=== PATIENT | female | born 1995 | race Caucasian/White ===

== ENCOUNTER → 2019-03-04 14:42 | Outpatient (BNVA) | payer OTHER, SELFPAY | PROVIDERS: Family Provider Nurse Practitioner; PCP Nurse Practitioner; Visit Provider Obstetrics & Gynecology | DX: Z01.89 Encounter for other specified special examinations (principal) | CPT/HCPCS: 84315 ==

== ENCOUNTER → 2019-03-18 15:42 | Outpatient (BNVA) | payer OTHER, SELFPAY | PROVIDERS: Family Provider Nurse Practitioner; PCP Nurse Practitioner; Visit Provider Obstetrics & Gynecology | DX: Z01.89 Encounter for other specified special examinations (principal) | CPT/HCPCS: 84315 ==

== ENCOUNTER → 2019-04-01 15:50 | Outpatient (BNVA) | payer OTHER, MEDICAID, SELFPAY | PROVIDERS: Family Provider Nurse Practitioner; PCP Nurse Practitioner; Visit Provider Obstetrics & Gynecology | DX: O99.013 Anemia complicating pregnancy, third trimester (principal); Z3A.00 Weeks of gestation of pregnancy not specified | CPT/HCPCS: 84315; 85027 ==

== ENCOUNTER → 2019-04-14 15:38 | Outpatient (BNVA) | payer OTHER, SELFPAY | PROVIDERS: Family Provider Nurse Practitioner; PCP Nurse Practitioner; Visit Provider Obstetrics & Gynecology | DX: Z01.89 Encounter for other specified special examinations (principal) | CPT/HCPCS: 84315 ==

== ENCOUNTER → 2019-04-28 14:34 | Outpatient (BNVA) | payer OTHER, MEDICAID, SELFPAY | PROVIDERS: Family Provider Nurse Practitioner; PCP Nurse Practitioner; Visit Provider Obstetrics & Gynecology | DX: O99.013 Anemia complicating pregnancy, third trimester (principal) | CPT/HCPCS: 84315; 87081 ==

== ENCOUNTER 2019-05-05 12:21 | Outpatient (CLI) | payer OTHER, MEDICAID, SELFPAY ==
[2019-05-05] VITALS (8 sets, daily range): BP systolic 103–118; BP diastolic 63–78; PULSE 92–112; RESP 18; TEMP 36.9; BMI 32.4
[2019-05-05 13:43] LABS: Basophils % 0.2 %; Eosinophils # 0.1 10^3/uL (0.0-0.8); Eosinophils % 0.9 %; Hematocrit 38.4 % (37.0-47.0); Hemoglobin 12.5 g/dL (11.5-15.3); Lymphocytes # 1.4 10^3/uL (0.8-4.8); Lymphocytes % 15.7 %; Mean Corpuscular HGB Conc 32.6 g/dL (30.0-36.0); Mean Corpuscular Hemoglobin 27.4 pg (28.0-34.0); Mean Platelet Volume 11.1 fL (7.4-10.4); Monocytes # 0.6 10^3/uL (0.2-0.9); Monocytes % 7.1 %; Neutrophils # 6.5 10^3/uL (1.8-7.7); Neutrophils % 75.5 %; Nucleated Red Blood Cells % 0 %; Platelet Count 238 10^3/cmm (130-400); Red Blood Count 4.57 10^6/uL (4.1-5.3); Red Cell Distribution Width 14.5 % (12.1-15.1); White Blood Count 8.6 10^3/uL (4.0-10.0)
[2019-05-05 14:00] LABS: Add Urine Microscopic? YES; Bilirubin Urine Neg (NEGATIVE); Blood Urine Neg (Negative); Glucose Urine UA Norm (Normal); Ketones Urine Negative (Negative); Leukocyte Esterase Urine 2+ (Negative); Nitrate Urine Negative (Negative); Protein Urine Neg (Negative); Specific Gravity, Urine 1.015 (1.005-1.030); Urine Appearance Clear (CLEAR); Urine Color Yellow (Yellow); Urobilinogen Urine Norm (Negative); pH Urine 6 (5-7)
[2019-05-05 14:02] LABS: Bacteria Urine 1+
[2019-05-05 14:03] LABS: Add Urine Culture? No
[2019-05-05 14:07] LABS: Alanine Aminotransferase 9 U/L (0-33); Albumin Level 3.2 g/dL (3.5-5.2); Alkaline Phosphatase 110 IU/L (35-105); Anion Gap 16.5 (5-19); Aspartate Amino Transferase 17 U/L (0-32); Blood Urea Nitrogen 4 mg/dL (6-20); Calcium 9.3 mg/dL (8.5-10.5); Carbon Dioxide 21 mmol/L (22-29); Chloride 100 mmol/L (98-107); Globulin 2.8 g/dL (1.3-4.6); Glomerular Filtration Rate 192.9 mL/min (90-130); Glucose 113 mg/dL (65-115); Osmolality Calculated 274 mOsm/kg (285-295); Potassium 3.5 mmol/L (3.5-5.1); Sodium 134 mmol/L (136-145); Total Bilirubin 0.4 mg/dL (0.15-1.2); Uric Acid 2.9 mg/dL (2.4-5.7)
[2019-05-05 14:09] LABS: Urine Creatinine 75 mg/dL (28-217); Urine Protein Random 9 mg/dL
[2019-05-05 14:13] LABS: UPRO/UCREAT Ratio 0.12 mg/mg CR
== END 2019-05-05 14:39 | disposition home or self-care (01) ==
LOC: OPOB 12:54 → OBGYN 14:30 → OPOB 05-06 07:47
PROVIDERS: Family Provider Nurse Practitioner; PCP Nurse Practitioner; Visit Provider Obstetrics & Gynecology
DX: O16.9 Unspecified maternal hypertension, unspecified trimester (principal); Z3A.00 Weeks of gestation of pregnancy not specified
CPT/HCPCS: 36415; 59025; 80053; 81001; 82570; 84156; 84315; 84550; 85025; 99211

== ENCOUNTER → 2019-05-12 13:09 | Outpatient (BNVA) | payer OTHER, SELFPAY | PROVIDERS: Family Provider Nurse Practitioner; PCP Nurse Practitioner; Visit Provider Obstetrics & Gynecology | DX: Z46.89 Encounter for fitting and adjustment of other specified devices (principal) | CPT/HCPCS: 84315 ==

== ENCOUNTER → 2019-05-19 10:03 | Outpatient (BNVA) | payer OTHER, SELFPAY | PROVIDERS: Family Provider Nurse Practitioner; PCP Nurse Practitioner; Visit Provider Obstetrics & Gynecology | DX: Z01.89 Encounter for other specified special examinations (principal) | CPT/HCPCS: 84315 ==

== ENCOUNTER 2019-05-21 19:56 | Inpatient (IN) | payer OTHER, MEDICAID, SELFPAY ==
[2019-05-21] VITALS (15 sets, daily range): BP systolic 0–146; BP diastolic 0–86; PULSE 83–100; TEMP 36.5–36.7; BMI 31.9
[2019-05-21 20:22] LABS: Basophils % 0.3 %; Eosinophils # 0.1 10^3/uL (0.0-0.8); Eosinophils % 0.9 %; Lymphocytes # 1.9 10^3/uL (0.8-4.8); Lymphocytes % 16.9 %; Mean Corpuscular HGB Conc 33.3 g/dL (30.0-36.0); Mean Corpuscular Hemoglobin 28.1 pg (28.0-34.0); Mean Corpuscular Volume 84.4 fL (81-99); Mean Platelet Volume 11.2 fL (7.4-10.4); Monocytes # 0.8 10^3/uL (0.2-0.9); Monocytes % 6.9 %; Neutrophils # 8.2 10^3/uL (1.8-7.7); Neutrophils % 74.5 %; Nucleated Red Blood Cells % 0 %; Platelet Count 231 10^3/cmm (130-400); Red Blood Count 4.62 10^6/uL (4.1-5.3); Red Cell Distribution Width 14.4 % (12.1-15.1)
[2019-05-21 20:53] LABS: Urine Appearance Clear (CLEAR); Urine Color Yellow (Yellow); pH Urine 5 (5-7)
[2019-05-21 20:54] LABS: Bacteria Urine TRACE; Bilirubin Urine Neg (NEGATIVE); Blood Urine Neg (Negative); Glucose Urine UA Norm (Normal); Ketones Urine 2+ (Negative); Leukocyte Esterase Urine Negative (Negative); Mucus Urine 1+; Nitrate Urine Negative (Negative); Protein Urine Neg (Negative); RBC Urine RARE /hpf (0-2); Squamous Epithelial Cell Urine RARE (0-5); Urobilinogen Urine 1 mg/dL (Negative); WBC Urine RARE /hpf (0-5)
[2019-05-21 21:12] LABS: Urine Creatinine 196 mg/dL (28-217); Urine Protein Random 20 mg/dL
[2019-05-21] MEDS: oxytocin 30 UNIT/500 ML BAG IV (21:58)
[2019-05-22] VITALS (170 sets, daily range): BP systolic 0–173; BP diastolic 0–94; PULSE 61–156; RESP 18; TEMP 36.6–37.1; O2SAT 93–100
[2019-05-22] MEDS: dextrose 5%-lactated ringers 1,000 ML 125 ML IV (00:24)
[2019-05-22] MEDS: lactated ringers 1,000 ML 999 ML IV (02:46)
--- NOTE | 2019-05-22 03:55 | ANES.PREANE2 ---
Pre-Anesthetic Assessment Pre-Anesthetic Assessment: Height/Weight: Height 1.65 m Weight 87.09 kg Temp Pulse BP Pulse Ox 98.4 F 77 124/64 97 05/22/19 04:44 05/22/19 04:59 05/22/19 04:59 05/22/19 04:58 Preop Diagnosis: IUP Proposed Procedure: labor epidural Was Beta Johny taken within 24 hours: N/A Social: Social History: No alcohol and No tobacco Exam: Pre-Anes Outpt Exam: alert, oriented x 3, clear to auscultation bilaterally and regular rate & rhythm Airway: Submandibular: WNL Cervical ROM: WNL MP: 1 History/ROS: No significant history except as noted Pulmonary: Pulmonary: None reported CV/HEM: CV/HEM: None reported : : None reported Hepatic: Hepatic: None reported GI: GI: None reported Metabolic: Metabolic: None reported Musc/skel: Musc/skel: None reported Neuropsych: Neuropsych: None reported Anesthetic Plan: ASA status: 1 Anesthesia: Anesthesia Evaluation Risk of > 500 ml blood loss (7ml/kg in children): No Meds/Allergies Current Medications: Current Medications Generic Name Dose Route Start Last Admin Trade Name Freq PRN Reason Stop Dose Admin Dextrose/Lactated Ringer's 1,000 mls @ 125 m ls/hr 05/21/19 19:45 05/22/19 00:24 Dextrose 5%-Lact ated Ringers IV 125 mls/hr .Q8H PADDY Administration Oxytocin 30 unit in 500 ml s @ 1 mls/hr 05/21/19 21:30 05/22/19 01:00 Pitocin IV 5 milliunit/min .Q24H PADDY 5 mls/hr Titration Protocol 1 MILLIUNIT/MIN PFSH Anesthesia PFSH: Social History Smoking and tobacco status: never smoked Alcohol intake: never Additional social history: - Tobacco use: Denies Alcohol use: Denies Drug use: Denies 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 [employer] Female Reproductive History: : 2 Data Anesthesia CBC & Chem 7: 05/21/19 19:35 Other Labs: Laboratory Results - last 48 hr 05/21/19 05/21/19 05/21/19 19:35 20:35 20:35 WBC 11.0 H RBC 4.62 Hgb 13.0 Hct 39.0 MCV 84.4 MCH 28.1 MCHC 33.3 RDW 14.4 Plt Count 231 MPV 11.2 H Neut % (Auto) 74.5 Lymph % (Auto) 16.9 [place] % (Auto) 6.9 Eos % (Auto) 0.9 Baso % (Auto) 0.3 Neut # (Auto) 8.2 H Lymph # (Auto) 1.9 [place] # (Auto) 0.8 Eos # (Auto) 0.1 Baso # (Auto) 0.0 Nucleated RBC % (auto) 0 Nucleated RBCs # 0.0 Urine Color Yellow Urine Appearance Clear Urine pH 5 Ur Specific [place] 1.030 Urine Protein Neg Urine Glucose (UA) Norm Urine Ketones 2+ H Urine Blood Neg Urine Nitrate Negative Urine Bilirubin Neg Urine Urobilinogen 1 H Ur Leukocyte Esterase Negative Urine RBC Rare Urine WBC Rare Ur Squamous Epith Cells Rare Urine Bacteria Trace Urine Mucus 1+ U Random Total Protein 20 Urine Creatinine 196 Protein/Creatinin Ratio 0.10 Cardiac Studies: No Data to Display
--- NOTE | 2019-05-22 05:03 | ANES.PROC ---
Anesthesia Procedures Procedure/Date: 05/22/19 Epidural: Time Out Performed: Yes Consents Signed: Procedure Consent Consent: requested by attending/covering physician Lumbar Level: L4-L5 Epidural position: sitting Epidural procedure: sterile prep of area, 1% lidocaine to numb the area, 18 g needle, negative for paresthesia passed, neg for paresthesia, test dose given, 1.5% xylocaine 1:200k epi (5ml), placed PCEA, no systemic response, sterile dressing applied, L.U.D. no apparent complications and 0.2% Ropiavacaine @ mls/hr (13) Additional Comments: 1st attempt at L4-5 blood returned in catheter, flushed with saline and aspirated again with blood return. Catheter withdrawn, skin re-prepped. Successful attempt 2 was made at L3-4 with no complications.
[2019-05-22] MEDS: oxytocin 30 UNIT/500 ML BAG 8 UNIT IV (05:45)
--- NOTE | 2019-05-22 06:33 | PC.NURSE ---
AT 0545 HIGH DOSE PITOCIN WAS STARTED FROM EXISTING BAG OF FLUIDS. THIS BROUGHT THE AMOUNT FROM 6 MILLIUNITS TO 8 MILLIUNITS.
[2019-05-22] MEDS: ondansetron 2 mg/ML SDV 2 mL 4 MG IVP ×2 (14:20→17:02)
[2019-05-22] MEDS: metoclopramide 5 mg/mL SDV 2 mL 10 MG IV (18:52)
--- NOTE | 2019-05-22 20:19 | PM.DELIVERY ---
 Delivery Note: Date of delivery: May 22, 2019 Pre-delivery diagnoses: 24-year-old 2 para 0-0-1-0 at 39 weeks and 4 days gestation GBS negative Anemia on iron Elective induction of labor Post-delivery diagnoses: Vaginal delivery on 05/22/2019 Procedure: Vaginal delivery Op report anesthesia: Epidural and Local Delivering Physician: Dr. Diego Chen Pre-Delivery Course: Ms. Fuentes is a 24-year-old 2 para 0-0-1-0 at 39 weeks and 4 days gestation who presented to labor and delivery on 05/21/2019 for scheduled induction of labor-elective. She was GBS negative and on examination was noted to be 3 cm, 70% and -3 station with a category 1 tracing and contractions every 1 to 5 minutes that she rated as 4 out of 10 in intensity. She had 1 elevated blood pressure and protein creatinine ratio performed was within normal limits and ruled out preeclampsia and all other blood pressures were largely within normal limits. -Induction was started at 10 PM with Pitocin titrated to a maximum of 20 mIU. This was continued for 12 hours. She grew uncomfortable during this time and although she made very minimal cervical change and epidural was placed for her relief. tracing remained category 1. After 12 hours of Pitocin it was turned off patient was allowed to have a clear liquid diet and Pitocin restarted after 3 hours. Pitocin was titrated to a maximum of 14 mIU and she started to make cervical change and at 2:30 PM on 05/22/2019 was 5 cm, 80% and -2 station. Artificial rupture of membranes was performed at 3:30 PM with clear fluid at which point she was 6 cm, 100% and -2 station. She made rapid cervical change and was fully dilated at 530 and was allowed to labor down until 6:30 PM at which point the head was +2 station. She was set up in lithotomy ready to push Delivery: She was set up in lithotomy position and was pushing effectively. She was noted to be +3 station and continued pushing well. A right mediolateral episiotomy was cut after infiltrating the area with 2% lidocaine. The head delivered in TINA position, no nuchal cord was present. The shoulders and rest of the body followed with her next push. The baby's mouth and nose were suctioned and the baby was placed on the mother's belly. Once cord pulsations stopped the cord was cut by father of the baby. Placenta delivered spontaneously intact with membranes and was discarded. The fundus was noted to be firm and well contracted. The vagina and cervix were inspected and no cervical or sulcal lacerations were noted. The perineum was noted to be intact except for the right mediolateral episiotomy which was repaired with 3-0 Vicryl in a continuous interlocking fashion and good hemostasis and reapproximation was obtained. Baby girl, [place] born at 7:41 PM on 05/22/2019 with 8/9, weighing 8 pounds 5 ounces, 3675 g, 20-3/4 inches long. Placenta was delivered spontaneously intact with membranes at 7:45 PM. Cotyledons were intact , centrally inserted umbilical cord with 3 vessels noted. Estimated blood loss 350 mL. Complications-none, both baby and mother were left to recovery in a stable condition Post-Delivery Status: Stable A&P Assessment and plan (1) Encounter for supervision of normal , unspecified, third trimester: Status: Acute Qualifiers: Normal : normal first Qualified Code(s): Z34.03 - Encounter for supervision of normal first , third trimester (2) Anemia affecting : Status: Acute Qualifiers: Trimester: third trimester Qualified Code(s): O99.013 - Anemia complicating , third trimester Coding Level of Care Code Acute Ergonomic Specialist for Chg Fwd Diagnoses Encounter for supervision of normal , unspecified, third trimester Z34.03 Normal : normal first Anemia affecting O99.013 Trimester: third trimester
[2019-05-22] MEDS: lanolin oint 7 gm 1 APPLIC TOPICAL (22:00)
[2019-05-22] MEDS: benzocaine-menthol 78 gm Canister 1 SPRAY TOPICAL (22:00)
[2019-05-23] VITALS (7 sets, daily range): BP systolic 98–125; BP diastolic 58–79; PULSE 91–116; RESP 16–18; TEMP 36.4–36.8; O2SAT 99
[2019-05-23] MEDS: HYDROcodone-acetaminophen 5-325 mg Tablet PO (03:51)
[2019-05-23] MEDS: famotidine 20 mg Tablet PO (07:41)
[2019-05-23] MEDS: docusate sodium 100 mg Capsule PO ×2 (08:48→22:02)
[2019-05-23] MEDS: prenatal vitamin Capsule 1 CAP PO (08:48)
[2019-05-23 09:21] LABS: Hematocrit 34.5 % (37.0-47.0); Hemoglobin 11.4 g/dL (11.5-15.3); Mean Corpuscular Hemoglobin 27.6 pg (28.0-34.0); Mean Corpuscular Volume 83.5 fL (81-99); Mean Platelet Volume 10.9 fL (7.4-10.4); Platelet Count 215 10^3/cmm (130-400); Red Blood Count 4.13 10^6/uL (4.1-5.3); Red Cell Distribution Width 14.3 % (12.1-15.1); White Blood Count 13.9 10^3/uL (4.0-10.0)
--- NOTE | 2019-05-23 12:39 | PM.PN ---
Subjective Subjective: Interval history: 24-year-old white female 2, now para 1-0-1-1 who is status post vaginal delivery on 05/22/2019 at approximately 19:40. She denies any complaints. She reports tolerating a regular diet without nausea or vomiting. She denies lightheadedness or dizziness with ambulation. She denies shortness of breath or chest pains. She states that her pain is been well controlled. She denies problems with urination. She states that her bleeding has slowed. She reports that she is breast-feeding. Vitals/I&O/Wt Last Vital Signs Temp 97.6 F 05/23/19 08:58 Pulse 93 05/23/19 08:58 Resp 16 05/23/19 08:58 BP 111/75 05/23/19 08:58 Pulse Ox 99 05/23/19 08:58 05/22/19 05/23/19 05/23/19 22:59 06:59 14:59 Intake Total 28 / 443.033 Output Total 200 / 600 1150 / 1750 Balance -172 / -156.967 -1150 / -1306.967 Weight last 48 hrs Weight 192 lb Physical Exam Const: COMMON NORMALS: no apparent distress, average body habitus, alert and well nourished GENERAL APPEARANCE: well developed ORIENTATION/CONSCIOUSNESS: Yes oriented to person, Yes oriented to place and Yes oriented to time Resp: COMMON NORMALS: normal respiratory effort and clear to auscultation bilaterally AUSCULTATION: clear to auscultation bilaterally Cardio: COMMON NORMALS: regular rate, regular rhythm, no gallops, no murmurs and no rub RATE: regular rate RHYTHM: regular rhythm GI: COMMON NORMALS: soft to palpation, non-tender, no hepatosplenomegaly and no masses (Except for nontender uterus, approx 2 FB below umbilicus) AUSCULTATION: Yes normoactive bowel sounds PALPATION: Yes soft, Yes no hepatosplenomegaly and No hernia : EXTERNAL FEMALE EXAM: No hernia Extremity: GENERAL: Yes edema (2+ lower extremity) OTHER: No calf pain bilaterally Neuro: SENSORIUM/ORIENTATION: Yes alert, Yes oriented to person, Yes oriented to place and Yes oriented to time Psych: COMMON NORMALS: affect normal MOOD & AFFECT: Yes euthymic mood Urinary Catheter Management^: Peña: Cath Placed During This Visit: yes Urinary Catheter Date of Insertion: 05/22/19 Urinary Catheter Time of Insertion: 05:15 Data : 05/23/19 09:07 A&P Assessment and plan (1) Term delivered: day 1, approximately 16 hours status post vaginal delivery. Patient doing well overall. Continue present management. Discontinue PIID. Plan is for discharge tomorrow. Status: Acute Attestations Medical Necessity Statement*: Patient is <16 hours post vaginal delivery. Coding Level of Care Code Acute Orthodontic Band Maker for Chg Fwd Diagnoses Term delivered O80
[2019-05-24 06:10] VITALS: BP 107/70; PULSE 85; RESP 16; TEMP 36.5; O2SAT 96
[2019-05-24] MEDS: prenatal vitamin Capsule 1 CAP PO (10:24)
[2019-05-24] MEDS: docusate sodium 100 mg Capsule PO (10:24)
[2019-05-24 10:34] VITALS: BP 124/81; PULSE 76; RESP 16; TEMP 36.7
--- NOTE | 2019-05-24 10:46 | PM.DCS ---
Discharge Providers Date of Admission: 05/21/19 19:56 Date of Discharge: May 24, 2019 Attending Provider at Admission: Diego Bellamy MD Attending Provider at Discharge: Diego Bellamy MD Primary Care Provider: FANTA Feliciano Diagnoses at Discharge Discharge Diagnosis (1) Term delivered: Status: Acute Reason for Visit Reason for Visit: Reason For Visit: induction Hospital Course Hospital Course: ADMISSION DIAGNOSIS: 24-year-old 2 para 0-0-1-0 at 39 weeks and 4 days gestation GBS negative Anemia on iron Elective induction of labor Ms. Fuentes is a 24-year-old 2 para 0-0-1-0 at 39 weeks and 4 days gestation who presented to labor and delivery on 05/21/2019 for scheduled induction of labor-elective. She was GBS negative and on examination was noted to be 3 cm, 70% and -3 station with a category 1 tracing and contractions every 1 to 5 minutes that she rated as 4 out of 10 in intensity. She had 1 elevated blood pressure and protein creatinine ratio performed was within normal limits and ruled out preeclampsia and all other blood pressures were largely within normal limits. -Induction was started at 10 PM with Pitocin titrated to a maximum of 20 mIU. This was continued for 12 hours. She grew uncomfortable during this time and although she made very minimal cervical change and epidural was placed for her relief. tracing remained category 1. After 12 hours of Pitocin it was turned off patient was allowed to have a clear liquid diet and Pitocin restarted after 3 hours. Pitocin was titrated to a maximum of 14 mIU and she started to make cervical change and at 2:30 PM on 05/22/2019 was 5 cm, 80% and -2 station. Artificial rupture of membranes was performed at 3:30 PM with clear fluid at which point she was 6 cm, 100% and -2 station. She made rapid cervical change and was fully dilated at 530 and was allowed to labor down until 6:30 PM at which point the head was +2 station. She was set up in lithotomy ready to push Discharge Summary: She underwent an uncomplicated vaginal delivery on 05/22/2019. She did well on day 0 and was ambulating well, tolerating regular diet, voiding freely, passing flatus. She was breast-feeding without difficulty and bonding well with her daughter. Pain was well-controlled with by mouth pain medication. She denied nausea, vomiting, fever, chills, shortness of breath, leg pain. She had moderate vaginal bleeding. On day # 1 she continued to do well with stable vital signs and stable hemoglobin at 11.5. She was discharged home on day 2 in a stable condition. Warning signs for endometritis, mastitis, DVT/PE were reviewed with her. Post delivery activity restrictions were also reviewed with her at all her questions were answered to her satisfaction. Considering control pills Physical Exam Narrative: EXAM NARRATIVE: Gen.: No acute distress Heart: S1-S2 heard, regular rate and rhythm Lungs: Clear to auscultation bilaterally Abdomen: Soft, fundus firm below umbilicus Legs: No calf tenderness, 2+ bilateral pitting pedal edema. Urinary Catheter Management^: Peña: Cath Placed During This Visit: yes Urinary Catheter Date of Insertion: 05/22/19 Urinary Catheter Time of Insertion: 05:15 Discharge Data Vitals: Last Vital Signs Temp 98.1 F 05/24/19 10:34 Pulse 76 05/24/19 10:34 Resp 16 05/24/19 10:34 BP 124/81 05/24/19 10:34 Pulse Ox 96 05/24/19 06:10 Discharge Plan Discharge Patient Disposition: Home, Self-Care Condition: Stable Prescriptions: New ibuprofen 800 mg tablet 800 mg PO Q8H Qty: 30 RF: 0 docusate sodium 100 mg Capsule 100 mg PO BID PRN (Reason: constipation) Qty: 30 RF: 0 Continued prenat.vits,rohan,[id number] Tablet 1 tab PO DAILY RF: 0 Discontinued ferrous sulfate 325 mg (65 mg iron) tablet 325 mg PO BID RF: 0 Discharge Orders: Discharge Order (Routine); Ordered 05/24/19 Ordered By: Diego Bellamy Referrals: Diego Bellamy MD [Physician] - (6 wk pp) Discharge Diet: Usual diet Activity Restrictions/Additional Instructions: Pelvic rest for 6 weeks No heavy lifting for 6 weeks Emergency room precautions reviewed Discharge Attestations Time Spent in Discharge Care*: greater than 30 min Quality Metrics Clinical Quality Measures During this hospital stay, did patient experience: None Coding Level of Care Code Acute Extruder Operator Horizontal for Chg Fwd Diagnoses Term delivered O80
[2019-05-24 13:40] VITALS: BP 118/78; PULSE 85; RESP 18; TEMP 37.1; O2SAT 96
== END 2019-05-24 13:55 | disposition home or self-care (01) | DRG 807 ==
LOC: OPOB 19:56
PROVIDERS: Admitting Provider Obstetrics & Gynecology; Family Provider Nurse Practitioner; PCP Nurse Practitioner; Visit Provider Obstetrics & Gynecology
DX: O99.02 Anemia complicating childbirth (principal); Z37.0 Single live birth; D64.9 Anemia, unspecified; Z3A.39 39 weeks gestation of pregnancy; O70.0 First degree perineal laceration during delivery
CPT/HCPCS: 12345; 36415; 51702; 59409; 81001; 82570; 84156; 85025; 85027; 96375; J2405; J2765; J2795

== ENCOUNTER → 2020-01-20 14:45 | Outpatient (BNVA) | payer OTHER, SELFPAY | PROVIDERS: Family Provider Nurse Practitioner; PCP Nurse Practitioner; Visit Provider Podiatrist Foot & Ankle Surgery | DX: B35.1 Tinea unguium (principal) | CPT/HCPCS: 87210 ==

== ENCOUNTER 2021-07-13 19:37 | Emergency (ER) | payer OTHER, SELFPAY ==
[2021-07-13 19:40] VITALS: BP 125/89; PULSE 90; RESP 16; TEMP 36.9; O2SAT 100; BMI 26.6
--- NOTE | 2021-07-13 19:41 | ED_ITS ---
HPI - Animal Bite General: Chief Complaint: Animal Bite Stated Complaint: SNAKE BITE Time Seen by Provider: 07/13/21 19:40 History of Present Illness: Ms Fuentes is a 26-year-old lady without significant medical history who is currently up-to-date on Tdap presenting to the emergency department due to concern for snakebite. She was walking with her and pushing a stroller when she saw a snake strike out and hit her left leg. She reports mild initial nauseous feeling associated with initial panic. She has not had pain or other symptoms since incident. Otherwise has been at her baseline health. No other specific changes in health, exacerbating, or alleviating factors identified. Onset (ago): minute(s) Animal: snake Review of Systems General: Reports: 10 or more systems reviewed and unremarkable except in HPI and below PFSH ED PFSH: Medical History No pertinent past medical history Denies diabetes, asthma, hypertension, seizures, DVT/PE PMD: Dr. Cannon Surgical History H/O adenoidectomy Done in second grade-denies any complications with anesthesia History of dental surgery Family History Family/Other Breast cancer Maternal cousin, diagnosed in her 50s Grandfather CAD (coronary artery disease) maternal Diabetes maternal Hypertension paternal Grandmother Diabetes maternal Hypertension paternal Denies family history of Colon cancer Ovarian cancer Hyperlipidemia Uterine cancer Thyroid condition Stroke Social History Smoking and tobacco status: never smoked Physical Exam Const: COMMON NORMALS: alert GENERAL APPEARANCE: cooperative and well developed HENMT: COMMON NORMALS: normocephalic and atraumatic HEAD & SCALP: normocephalic and atraumatic Eye: COMMON NORMALS: conjunctivae normal CONJUNCTIVA: Yes conjunctivae normal SCLERA: sclerae normal Neck/C-Spine: COMMON NORMALS: supple GENERAL: Yes trachea midline Resp: COMMON NORMALS: normal respiratory effort EFFORT & INSPECTION: Yes able to speak in complete sentences Cardio: COMMON NORMALS: regular rate and regular rhythm RATE: regular rate RHYTHM: regular rhythm GI: COMMON NORMALS: Soft to palpation PALPATION: Yes Soft to palpation and No Tenderness to palpation present (GI) PERCUSSION: normal to percussion Extremity: NARRATIVE EXTREMITY EXAM: LLE - anterior butcher with few abrasions. No evidence of punctures. No edema or discoloration. Distal CMS normal. GENERAL: Yes normal exam except as noted and No edema Neuro: COMMON NORMALS: moves all extremities SENSORIUM/ORIENTATION: Yes alert and No Orientation impaired Psych: COMMON NORMALS: mental status grossly normal and Normal thought process present THOUGHT PROCESS: Normal thought process present Course Vital Signs: Vital signs: Vital Signs Temperature 98.5 F 07/13/21 19:40 Pulse Rate 90 07/13/21 20:34 Respiratory Rate 17 07/13/21 20:34 Blood Pressure 125/89 07/13/21 20:34 Pulse Oximetry 100 07/13/21 20:34 MDM - Animal Bite Medical Decision Making 26 yo lady presenting due to concern over snakebite. Up-to-date on Tdap. Physical exam more consistent with mild abrasions/glancing injury. There is no puncture wound. Picture of snake consistent with northern water snake. Patient is asymptomatic. Satisfactory for outpatient management with strict return precautions. Medical Records I reviewed the patient's medical records. Lab Data I reviewed the patient's lab results. Discharge Plan Discharge Patient Disposition: Home Clinical Impression: Snake bite Condition: Stable Prescriptions: No Action 28-800 mg-mcg Tablet 1 tab PO DAILY 0RF Discharge Orders: Discharge ED (Routine); Ordered 07/13/21 Ordered By: Dustin Wheat Referrals: Nikole Palma, ELECTRICAL SOFTWARE ENGINEER-C [Nurse Practitioner] - Discharge Diet: Usual diet Discharge Activity: Resume usual activity Patient Instructions: Snake Bite (ED) Activity Restrictions/Additional Instructions: Thank you for visiting the emergency department. You were seen and evaluated for concern for snakebite. Based on exam I do not believe that there are any puncture wounds and based on picture I have low suspicion for venomous snake. You may use topical triple acting antibiotic and perform local wound care. I do not expect any of the following but please return to the emergency department for pain, increased swelling or redness that spreads, any numbness or tingling, any signs of systemic illness, or anything else that you are concerned about and feel needs emergency department evaluation. Coding Level of Care Code ED Freight Claim Investigator for Juliane Lind
[2021-07-13 20:34] VITALS: BP 125/89; PULSE 90; RESP 17; O2SAT 100
== END 2021-07-13 20:36 | disposition home or self-care (01) ==
PROVIDERS: Emergency Provider Emergency Medicine; PCP Family Medicine
DX: S80.872A Other superficial bite, left lower leg, initial encounter (principal); W59.11XA Bitten by nonvenomous snake, initial encounter
CPT/HCPCS: 99282

== ENCOUNTER 2022-04-12 23:43 | Inpatient (IN) | payer OTHER, SELFPAY ==
[2022-04-12 22:40] VITALS: BMI 32.9
[2022-04-12 22:51] VITALS: RESP 15
[2022-04-12 22:53] VITALS: BP 120/76; PULSE 94; TEMP 36.1
[2022-04-12 23:47] VITALS: RESP 16
[2022-04-13] VITALS (53 sets, daily range): BP systolic 101–174; BP diastolic 61–97; PULSE 86–150; RESP 16–18; TEMP 36.7–37.3; O2SAT 85–100
[2022-04-13] MEDS: lactated ringers 1,000 ML 999 ML IV ×2 (00:11→01:15)
--- NOTE | 2022-04-13 00:16 | ANES.PREANE2 ---
Pre-Anesthetic Assessment Height/Weight: Height 1.65 m Temp Pulse BP 97.0 F L 94 120/76 04/12/22 22:53 04/12/22 22:53 04/12/22 22:53 Preop Diagnosis: IUP Familial anesthetic complications: None Was Beta Johny taken within 24 hours: N/A Was Clonidine taken within 24 hours: N/A Social No alcohol and No tobacco Exam alert, oriented x 3, clear to auscultation bilaterally and regular rate & rhythm Airway Submandibular: within normal limits Cervical ROM: within normal limits Mallampati: Class III Dentition: full History/ROS No significant history except as noted and No significant complaints Pulmonary Cough CV/HEM None reported None reported Hepatic None reported GI Gastroesophageal Reflux Disease Metabolic None reported Musc/skel None reported Neuropsych None reported Anesthetic Plan ASA status: 2 Anesthesia: Anesthesia Evaluation and Regional (specify below) (Epidural) Risk of > 500 ml blood loss (7ml/kg in children): No Medications/Allergies Home Medications Medication Instructions Recorded Confirmed Last Taken Type vit no.133-ferrous 1 tab PO DAILY 07/13/21 07/13/21 07/13/21 History fumarate 28 mg-folic acid 800 mcg tablet () Allergies Allergy/AdvReac Type Severity Reaction Status Date / Time Penicillins AdvReac oral Verified 02/14/21 15:09 thrush/yeast---Has never taken Keflex Current Medications Generic Name Dose Route Start Last Admin Trade Name Freq PRN Reason Stop Dose Admin Lactated Ringer's 1,000 mls @ 999 mls/hr 04/12/22 23:47 04/13/22 00:11 Lactated Ringers IV 999 mls/hr .Q1H1M PRN Administration See label comments PFSH Anesthesia Medical History No pertinent past medical history Denies diabetes, asthma, hypertension, seizures, DVT/PE PMD: Dr. Cannon Surgical History H/O adenoidectomy Done in second grade-denies any complications with anesthesia History of dental surgery Family History Family/Other Breast cancer Maternal cousin, diagnosed in her 50s Grandfather CAD (coronary artery disease) maternal Diabetes maternal Hypertension paternal Grandmother Diabetes maternal Hypertension paternal Denies family history of Colon cancer Ovarian cancer Hyperlipidemia Uterine cancer Thyroid condition Stroke Social History Smoking and tobacco status: never smoked Data Anesthesia Cardiac Studies: No Data to Display
[2022-04-13 00:32] LABS: Basophils % 0.4 %; Eosinophils # 0.1 10^3/uL (0.0-0.8); Eosinophils % 1.2 %; Hematocrit 33.2 % (37.0-47.0); Hemoglobin 10.4 g/dL (11.5-15.3); Lymphocytes # 2.1 10^3/uL (0.8-4.8); Lymphocytes % 18.1 %; Mean Corpuscular HGB Conc 31.3 g/dL (30.0-36.0); Mean Corpuscular Hemoglobin 23.9 pg (28.0-34.0); Mean Corpuscular Volume 76.1 fl (81-99); Mean Platelet Volume 13.2 fL (7.4-10.4); Monocytes # 0.9 10^3/uL (0.2-0.9); Monocytes % 7.4 %; Neutrophils # 8.28 10^3/uL (1.8-7.7); Neutrophils % 72.6 %; Nucleated Red Blood Cells % 0 %; Platelet Count 93 10^3/cmm (130-400); Red Blood Count 4.36 10^6/uL (4.1-5.3); Red Cell Distribution Width 14.1 % (12.1-15.1); White Blood Count 11.4 10^3/uL (4.0-10.0)
[2022-04-13 01:15] LABS: Slide Review Slide Review Perform
[2022-04-13 01:29] LABS: Basophils % 0.3 %; Eosinophils # 0.1 10^3/uL (0.0-0.8); Hematocrit 31.5 % (37.0-47.0); Hemoglobin 9.8 g/dL (11.5-15.3); Lymphocytes # 2.5 10^3/uL (0.8-4.8); Lymphocytes % 20.9 %; Mean Corpuscular HGB Conc 31.1 g/dL (30.0-36.0); Mean Corpuscular Hemoglobin 23.8 pg (28.0-34.0); Mean Corpuscular Volume 76.5 fl (81-99); Mean Platelet Volume 12.1 fL (7.4-10.4); Monocytes # 0.9 10^3/uL (0.2-0.9); Monocytes % 7.7 %; Neutrophils # 8.25 10^3/uL (1.8-7.7); Neutrophils % 69.8 %; Nucleated Red Blood Cells % 0 %; Platelet Count 84 10^3/cmm (130-400); Red Blood Count 4.12 10^6/uL (4.1-5.3); Red Cell Distribution Width 14.2 % (12.1-15.1); White Blood Count 11.8 10^3/uL (4.0-10.0)
--- NOTE | 2022-04-13 02:19 | ANES.PROC ---
Anesthesia Procedures Procedure/Date: 04/13/22 Epidural: Time Out Performed: Yes Consents Signed: Procedure Consent and NPO Consent Consent: requested by attending/covering physician, from patient, risks and benefits reviewed and patient agrees to proceed Lumbar Level: L2-L3 Epidural position: sitting Epidural procedure: sterile prep of area (betadine), 1% lidocaine to numb the area (3 mLs), neg for paresthesia, test dose given, 1.5% xylocaine 1:200k epi (3 mLs/ 2 mLs), 0.2% Ropivacaine bolus ml (5 mLs), placed PCEA, no systemic response, sterile dressing applied, L.U.D. no apparent complications and 0.2% Ropiavacaine @ mls/hr (13) Additional Comments: ROCK 7cm, catheter threaded to 12 cm. Attempt x 2. Called Dr. Cannon and Dr Nunez with platelet values and both were in agreement that we may proceed with epidural placemen. Patient educated on increased risk of bleeding and hematoma formation and agreeable to proceed with epidural placement.
[2022-04-13] MEDS: dextrose 5%-lactated ringers 1,000 ML 125 ML IV (02:22)
[2022-04-13] MEDS: oxytocin 30 UNIT/500 ML BAG 600 UNIT IV (03:32)
--- NOTE | 2022-04-13 04:58 | PM.OPHPUD ---
Labor & Delivery H&P Update Date of Procedure: April 13, 2022 Date H&P Performed: 04/11/22 Changes to previous documentation: The patient has made significant cervical change. Admission Diagnosis: Preop diagnosis: IUP Planned procedure: Spontaneous vaginal delivery Other information: The patient is a 27-year-old 3 para 1-0-1-1 at 39 weeks estimated gestational age presenting to the OB department in active labor. The patient had an unremarkable to this point. Her labs were also unremarkable. Her blood type is a positive. Her antibody screen was negative. She is rubella immune. She did fail her 1 hour glucose screen, but passed her 3-hour test. The remainder of her infectious disease profile is within normal limits.
--- NOTE | 2022-04-13 05:32 | P.PCNOB_ITS ---
Delivery Note: Date of delivery: April 13, 2022 Pre-delivery diagnoses: 27-year-old 2 para 1-0-0-1 at 39 weeks estimated gestational age presenting in active labor Post-delivery diagnoses: Status post vacuum-assisted vaginal delivery Procedure: Vacuum-assisted vaginal delivery Delivering Physician: Robert Cannon Estimated blood loss (mL): 150 Pre-Delivery Course: The patient presented to the hospital in active labor. An epidural was placed. An amniotomy was performed. After the amniotomy, the baby began having deep decelerations. She progressed to 8 cm and had a very stretchy cervix. Delivery: The baby began having deep decelerations despite appropriate interventions. At that time I noted that her cervix was 8 cm dilated and very stretchy. I had her push with contractions, and she was able to push past the cervix and was complete. Due to the continued deep decelerations, I elected to use a vacuum which I placed in the baby's head in the usual fashion. He has a vacuum for 10 seconds to help assist before delivery of the baby. She delivered a female with a weight of 7 pounds 12 ounces with Apgars of 8, 10. The baby was delivered from the TINA position and placed on the mother's abdomen. The cord was then clamped and cut 1 minute after delivery. There was a nuchal cord x2 that I did deliver through before reducing. There was no meconium. The [facility]a and 3 vessel cord were delivered intact shortly thereafter. The perineum and vaginal vault were carefully examined. A posterior and anterior midline lacerations were noted, neither of which were bleeding significantly. No repair was required.. Both the mother and the baby were in stable condition. Post-Delivery Status: Good History History History 2 Term 1 0 Miscarriages/Ectopic 1 Living Children 1 A&P Assessment and plan (1) 39 weeks gestation of : I anticipate routine care. (2) Vacuum-assisted vaginal delivery: Coding Level of Care Code Acute Code for Chg Fwd Diagnoses 39 weeks gestation of Z3A.39 Vacuum-assisted vaginal delivery Z37.9
[2022-04-13] MEDS: lanolin oint 7 gm 1 APPLIC TOPICAL (05:51)
[2022-04-13] MEDS: benzocaine-menthol 78 gm Canister 1 SPRAY TOPICAL (05:52)
[2022-04-13] MEDS: HYDROcodone-acetaminophen 5-325 mg Tablet PO ×2 (05:52→18:10)
[2022-04-13] MEDS: docusate sodium 100 mg Capsule PO ×2 (08:31→18:10)
[2022-04-13] MEDS: prenatal vitamin Capsule 1 CAP PO (08:31)
[2022-04-13] MEDS: ibuprofen 800 mg tablet PO ×3 (08:31→21:12)
[2022-04-13 15:58] LABS: Hematocrit 31.1 % (37.0-47.0); Hemoglobin 9.7 g/dL (11.5-15.3); Mean Corpuscular HGB Conc 31.2 g/dL (30.0-36.0); Mean Corpuscular Hemoglobin 23.8 pg (28.0-34.0); Mean Corpuscular Volume 76.2 fl (81-99); Mean Platelet Volume 13.2 fL (7.4-10.4); Platelet Count 91 10^3/cmm (130-400); Red Blood Count 4.08 10^6/uL (4.1-5.3); Red Cell Distribution Width 14.3 % (12.1-15.1); White Blood Count 12.8 10^3/uL (4.0-10.0)
[2022-04-14 01:10] VITALS: BP 115/82; PULSE 76; TEMP 36.7; O2SAT 98
[2022-04-14 04:00] VITALS: BP 103/66; PULSE 72; RESP 18; O2SAT 98
[2022-04-14 05:55] LABS: Basophils % 0.3 %; Eosinophils # 0.1 10^3/uL (0.0-0.8); Eosinophils % 1.5 %; Hematocrit 30.8 % (37.0-47.0); Hemoglobin 9.4 g/dL (11.5-15.3); Lymphocytes # 2.4 10^3/uL (0.8-4.8); Mean Corpuscular HGB Conc 30.5 g/dL (30.0-36.0); Mean Corpuscular Hemoglobin 23.5 pg (28.0-34.0); Mean Platelet Volume 12.3 fL (7.4-10.4); Monocytes # 0.5 10^3/uL (0.2-0.9); Monocytes % 5.3 %; Neutrophils # 6.03 10^3/uL (1.8-7.7); Neutrophils % 66.3 %; Nucleated Red Blood Cells % 0 %; Platelet Count 88 10^3/cmm (130-400); Red Cell Distribution Width 14.5 % (12.1-15.1); White Blood Count 9.1 10^3/uL (4.0-10.0)
--- NOTE | 2022-04-14 07:59 | ANE.PACU2 ---
Inpatient post-anesthesia follow up: Airway intact: Yes Vital signs: Temperature 98.2 F Pulse Rate 72 Respiratory Rate 18 Blood Pressure 103/66 Pulse Oximetry 98 Oxygen Delivery Me thod Room Air Oxygen Flow Rate Fraction of Inspir ed Oxygen Hydration adequate: Yes Nausea and vomiting: No Pain level: 2 Mental status: Baseline
--- NOTE | 2022-04-14 09:26 | PM.OBGYDC ---
Discharge Providers HEAD STOCK TRANSFER CLERK Date of Admission: 04/12/22 23:43 Date of Discharge: 04/14/22 Attending Provider at Admission: Robert Cannon MD Attending Provider at Discharge: Robert Cannon MD Primary Care Provider: Robert Cannon MD Diagnoses at Discharge Discharge Diagnosis (1) 39 weeks gestation of : Status: Acute (2) Vacuum-assisted vaginal delivery: Status: Acute Reason for Visit Reason for Visit: CONTRACTIONS AND PRESSURE Hospital Course Hospital Course The patient arrived to the hospital with spontaneous rupture of membranes. She was noted to be mildly thrombocytopenic with her platelet count in the 80-90,000 range. Her epidural was unremarkable. She had a vacuum-assisted vaginal delivery due to deep persistent decelerations. Her course has been unremarkable. She has breast-fed well. Her bleeding has been within normal limits. There have been no concerns. Information Peripartum Data: Infant Delivery Method: Vaginal Physical Exam Narrative: The patient is alert. She appears comfortable. Her heart has a regular rate and rhythm with no murmurs appreciated. Lungs are clear to auscultation bilaterally. Her fundus is firm and below the umbilicus. Urinary Catheter Management: Peña: Cath Placed During This Visit: yes, but has since been removed by the nurse Reason for Continuing Indwelling Catheter: Decision to DC Catheter Urinary Catheter Date of Insertion: 04/13/22 Urinary Catheter Time of Insertion: 02:45 Date Urinary Catheter Removed: 04/13/22 Time Urinary Catheter Discontinued: 03:12 History History History 3 Term 1 0 Miscarriages/Ectopic 1 Living Children 1 Discharge Data Studies Completed and Pending Laboratory Results WBC 9.1 10^3/uL (4.0-10.0) 04/14/22 05:50 RBC 4.00 10^6/uL (4.1-5.3) L 04/14/22 05:50 Hgb 9.4 g/dL (11.5-15.3) L 04/14/22 05:50 Hct 30.8 % (37.0-47.0) L 04/14/22 05:50 MCV 77.0 fl (81-99) L 04/14/22 05:50 MCH 23.5 pg (28.0-34.0) L 04/14/22 05:50 MCHC 30.5 g/dL (30.0-36.0) 04/14/22 05:50 RDW 14.5 % (12.1-15.1) 04/14/22 05:50 Plt Count 88 10^3/cmm (130-400) L 04/14/22 05:50 MPV 12.3 fL (7.4-10.4) H 04/14/22 05:50 Neut % (Auto) 66.3 % 04/14/22 05:50 Lymph % (Auto) 26.0 % 04/14/22 05:50 Newton % (Auto) 5.3 % 04/14/22 05:50 Eos % (Auto) 1.5 % 04/14/22 05:50 Baso % (Auto) 0.3 % 04/14/22 05:50 Neut # (Auto) 6.03 10^3/uL (1.8-7.7) 04/14/22 05:50 Lymph # (Auto) 2.4 10^3/uL (0.8-4.8) 04/14/22 05:50 Newton # (Auto) 0.5 10^3/uL (0.2-0.9) 04/14/22 05:50 Eos # (Auto) 0.1 10^3/uL (0.0-0.8) 04/14/22 05:50 Baso # (Auto) 0.0 10^3/uL (0.0-0.1) 04/14/22 05:50 Nucleated RBC % (auto) 0 % 04/14/22 05:50 Nucleated RBCs # 0.0 /100WBC 04/14/22 05:50 Vitals Last Vital Signs Temp 98.2 F 04/13/22 18:00 Pulse 72 04/14/22 04:00 Resp 18 04/14/22 04:00 BP 103/66 04/14/22 04:00 Pulse Ox 98 04/14/22 04:00 O2 Del Method 04/14/22 04:00 Discharge Plan Discharge Patient Disposition: Home Condition: Stable Prescriptions: New ibuprofen 800 mg Tablet 800 mg PO TID Qty: 45 0RF Continued 28-800 mg-mcg Tablet 1 tab PO DAILY Discharge Orders: Discharge Order (Routine); Ordered 04/14/22 Ordered By: Robert Cannon Referrals: Robert Cannon MD [Primary Care Provider] - 6 Weeks (She needs to have a CBC done 1 to 7 days prior to her appointment in 6 weeks at [facility]) Discharge Diet: Usual diet Discharge Activity: Limit activity as instructed Patient Instructions: Opioid Safety Discharge Attestations HEAD STOCK TRANSFER CLERK Time Spent in Discharge Care*: less than 30 min Coding Level of Care Code Acute Code for Chg Fwd Diagnoses 39 weeks gestation of Z3A.39 Vacuum-assisted vaginal delivery Z37.9
[2022-04-14 10:00] VITALS: BP 113/78; PULSE 84; TEMP 36.7; O2SAT 97
[2022-04-14] MEDS: prenatal vitamin Capsule 1 CAP PO (10:05)
[2022-04-14] MEDS: ibuprofen 800 mg tablet PO (10:05)
[2022-04-14] MEDS: docusate sodium 100 mg Capsule PO (10:06)
== END 2022-04-14 13:40 | disposition home or self-care (01) | DRG 806 ==
LOC: OPOB 23:44 → OBGYN 23:44
PROVIDERS: Admitting Provider Family Medicine; PCP Family Medicine; Visit Provider Family Medicine
DX: O76 Abnormality in fetal heart rate and rhythm complicating labor and delivery (principal); O99.12 Other diseases of the blood and blood-forming organs and certain disorders involving the immune mechanism complicating childbirth; Z37.0 Single live birth; O69.81X0 Labor and delivery complicated by cord around neck, without compression, not applicable or unspecified; D69.6 Thrombocytopenia, unspecified; Z3A.39 39 weeks gestation of pregnancy
CPT/HCPCS: 12345; 36415; 51702; 59025; 59409; 85025; 85027; 96374; 99211; J2590; J2795; J3010; J7120; J7121